=== PATIENT | male | born 1970 | race American Indian/Alaskan Native ===

== ENCOUNTER 2019-01-08 00:39 | Emergency (ER) | payer OTHER ==
[2019-01-08 01:14] LABS: Basophils # (Auto) 0.1 K/mm3 (0.0-0.1); Eosinophils # (Auto) 0.2 K/mm3 (0.0-0.4); Eosinophils % (Auto) 2.1 % (0.0-4.3); Hematocrit 42.4 % (35.5-45.6); Hemoglobin 14.2 gm/dl (11.8-15.2); Lymphocytes # (Auto) 2.7 K/mm3 (1.2-5.4); Lymphocytes % (Auto) 26.9 % (13.4-35.0); Mean Corpuscular HGB Conc 34 % (32-34); Mean Corpuscular Volume 89 fl (84-94); Monocytes # (Auto) 0.9 K/mm3 (0.0-0.8); Monocytes % (Auto) 8.7 % (0.0-7.3); Platelet Count 207 K/mm3 (140-440); Red Blood Count 4.79 M/mm3 (3.65-5.03); Red Cell Distribution Width 13.9 % (13.2-15.2)
[2019-01-08 01:35] LABS: Alanine Aminotransferase 19 units/L (7-56); Albumin 4.3 g/dL (3.9-5); BUN/Creatinine Ratio 16; Blood Urea Nitrogen 18 mg/dL (9-20); Calcium 9.7 mg/dL (8.4-10.2); Hemolysis Index 7
[2019-01-08 02:06] LABS: Bacteria,Urine 1+ /HPF (Negative); Bilirubin,Urine NEG (Negative); Blood,Urine NEG (Negative); Color,Urine Yellow (Yellow); Mucus,Urine FEW /HPF; Protein,Urine <15 mg/dL mg/dL (Negative)
[2019-01-08] MEDS ORDERED: PEPCID IV ONE (02:26)
[2019-01-08] MEDS ORDERED: ALUM-MAG HYDROX-SIMETH 200-200-20MG/5ML PO ONE (02:26)
[2019-01-08] MEDS ORDERED: TORADOL IV ONE (02:26)
[2019-01-08] MEDS ORDERED: LIDOCAINE VISCOUS 2% PO ONE (02:27)
[2019-01-08] MEDS ORDERED: ROCEPHIN/NS 1 GM/50 ML 1 GM/50 ML BAG IV ONE (02:27)
--- NOTE | 2019-01-08 03:33 | Emergency Department Report ---
ED Abdominal Pain HPI - General Chief Complaint: Abdominal Pain Stated Complaint: ABDOMINAL PAIN/VOMITING Time Seen by Provider: 01/08/19 02:18 Source: patient, family Mode of arrival: Ambulatory Limitations: No Limitations - History of Present Illness Initial Comments: Patient is a 48 yo AA male with a h/o asthma who presents to the ED with c/o acute onset persistent nausea and vomiting and diffuse abdominal pain for the last 3 hours. Patient also states that he has had only 2 episodes of nausea and vomiting. Patient states that he has not had any dyspnea, chest pain, dizziness, diarrhea, vision changes, dysuria, hematuria, fever and chills, testicular pain, sore throat and headache MD Complaint: abdominal pain, other (Nausea and vomiting) -: Sudden, hour(s) (3) Location: diffuse Radiation: none Migration to: no migration Severity: moderate Severity scale (0 -10): 6 Quality: cramping, aching Consistency: constant Improves With: nothing Worsens With: nothing Associated Symptoms: denies other symptoms, nausea, vomiting. denies: chills, constipation, hematemesis, hematochezia, melena, anorexia, syncope - Related Data Previous Rx's Medication Instructions Recorded Last Taken Type Dicyclomine [Bentyl] 20 mg PO Q6H PRN #24 tablet 01/08/19 Unknown Rx Ondansetron [Zofran Odt] 4 mg PO Q8HR #15 tab.rapdis 01/08/19 Unknown Rx Ranitidine HCl [Zantac] 150 mg PO Q12H #30 tablet 01/08/19 Unknown Rx Sennosides/Docusate [Senokot S] 1 each PO QHS #30 tab 01/08/19 Unknown Rx cephALEXin [Keflex] 500 mg PO Q6HR #40 capsule 01/08/19 Unknown Rx Allergies Allergy/AdvReac Type Severity Reaction Status Date / Time No Known Allergies Allergy Verified 06/17/16 07:29 ED Review of Systems ROS: Stated complaint: ABDOMINAL PAIN/VOMITING Other details as noted in HPI Constitutional: denies: chills, fever Eyes: denies: eye pain, eye discharge, vision change ENT: denies: ear pain, throat pain Respiratory: denies: cough, shortness of breath, wheezing Cardiovascular: denies: chest pain, palpitations Endocrine: no symptoms reported Gastrointestinal: abdominal pain, nausea, vomiting, constipation. denies: diarrhea Genitourinary: denies: urgency, dysuria Musculoskeletal: denies: back pain, joint swelling, arthralgia Skin: denies: rash, lesions Neurological: denies: headache, weakness, paresthesias Psychiatric: denies: anxiety, depression Hematological/Lymphatic: denies: easy bleeding, easy bruising ED Past Medical Hx - Past Medical History Previous Medical History?: Yes Hx Hypertension: No Hx CVA: No Hx Heart Attack/AMI: No Hx Congestive Heart Failure: No Hx Diabetes: No Hx Asthma: Yes Hx COPD: No Additional medical history: inguinal hernia. - Surgical History Past Surgical History?: No - Social History Smoking Status: Former Smoker Substance Use Type: None - Medications Home Medications: Home Medications Medication Instructions Recorded Confirmed Last Taken Type Dicyclomine [Bentyl] 20 mg PO Q6H PRN #24 tablet 01/08/19 Unknown Rx Ondansetron [Zofran Odt] 4 mg PO Q8HR #15 tab.rapdis 01/08/19 Unknown Rx Ranitidine HCl [Zantac] 150 mg PO Q12H #30 tablet 01/08/19 Unknown Rx Sennosides/Docusate [Senokot S] 1 each PO QHS #30 tab 01/08/19 Unknown Rx cephALEXin [Keflex] 500 mg PO Q6HR #40 capsule 01/08/19 Unknown Rx ED Physical Exam - General Limitations: No Limitations General appearance: alert, in no apparent distress - Head Head exam: Present: atraumatic, normocephalic, normal inspection - Eye Eye exam: Present: normal appearance, PERRL, EOMI. Absent: scleral icterus, conjunctival injection, nystagmus, periorbital swelling, periorbital tenderness Pupils: Present: normal accommodation - ENT ENT exam: Present: normal exam, normal orophraynx, mucous membranes moist, TM's normal bilaterally, normal external ear exam - Neck Neck exam: Present: normal inspection, full ROM - Respiratory Respiratory exam: Present: normal lung sounds bilaterally. Absent: respiratory distress, wheezes, rhonchi, chest wall tenderness, accessory muscle use, decreased breath sounds, prolonged expiratory - Cardiovascular Cardiovascular Exam: Present: regular rate, normal rhythm, normal heart sounds. Absent: systolic murmur, diastolic murmur, rubs, gallop - GI/Abdominal GI/Abdominal exam: Present: soft, normal bowel sounds. Absent: distended, tenderness, guarding, hyperactive bowel sounds, hypoactive bowel sounds, organomegaly, mass, bruit, pulsatile mass - Rectal Rectal exam: Present: deferred - Extremities Exam Extremities exam: Present: normal inspection, full ROM, normal capillary refill - Back Exam Back exam: Present: normal inspection, full ROM. Absent: tenderness, CVA tenderness (R), CVA tenderness (L), muscle spasm, paraspinal tenderness, vertebral tenderness - Neurological Exam Neurological exam: Present: alert, oriented X3, CN II-XII intact, normal gait, reflexes normal. Absent: motor sensory deficit - Psychiatric Psychiatric exam: Present: normal affect, normal mood, anxious - Skin Skin exam: Present: warm, dry, intact, normal color. Absent: rash ED Course Vital Signs 01/08/19 01/08/19 00:50 02:40 Temperature 97.6 F Pulse Rate 73 Respiratory 18 16 Rate Blood Pressure 95/56 O2 Sat by Pulse 97 Oximetry - Reevaluation(s) Reevaluation #1: 01/08/19 03:50 Patient is alert and oriented x 3 and is in no acute onset distress, resting comfortably in the room while talking to his family. Lab test results were reviewed and are unremarkable except for UA which showed acute urinary tract infection, and a mildly elevated AST. Patient was treated for pain and also received Rocephin 1 g IV 1 for acute urinary tract infection. On reevaluation, patient's pain is controlled, and patient has not had any nausea and vomiting in the ED this patient after being treated with antiemetics. Based on the physical exam findings and lab test results, patient was discharged home on pain medications, antibiotics for UTI and also antiemetics. Patient was advised to his medications, and to follow up with a primary care physician at [facility] in 5-7 days for reevaluation. Patient was advised to return to the ED immediately if symptoms get worse. 01/08/19 03:54 ED Medical Decision Making - Lab Data Result diagrams: 01/08/19 00:46 01/08/19 00:46 - Medical Decision Making Patient is alert and oriented x 3 and is in no acute onset distress, resting comfortably in the room while talking to his family. Lab test results were reviewed and are unremarkable except for UA which showed acute urinary tract infection, and a mildly elevated AST. Patient was treated for pain and also received Rocephin 1 g IV 1 for acute urinary tract infection. On reevaluation, patient's pain is controlled, and patient has not had any nausea and vomiting in the ED this patient after being treated with antiemetics. Based on the physical exam findings and lab test results, patient was discharged home on pain medications, antibiotics for UTI and also antiemetics. Patient was advised to his medications, and to follow up with a primary care physician at [facility] in 5-7 days for reevaluation. Patient was advised to return to the ED immediately if symptoms get worse. - Differential Diagnosis abdominal pain, gastroenteritis, GERD, Constipation, UTI Critical care attestation.: If time is entered above; I have spent that time in minutes in the direct care of this critically ill patient, excluding procedure time. ED Disposition Clinical Impression: Abdominal pain in male, Nausea and vomiting in adult, Acute urinary tract infection Disposition: TO HOME OR SELFCARE Is pt being admited?: No Does the pt Need Aspirin: No Condition: Stable Instructions: Acute Abdominal Pain (ED), Acute Nausea and Vomiting (ED), Urinary Tract Infection in Women (ED) Additional Instructions: Take medications with food, drink plenty of fluids and follow up with your Primary Care Physician as advised. Return to the ED immediately if symptoms get worse. Prescriptions: Sennosides/Docusate [Senokot S] 1 each PO QHS #30 tab Dicyclomine [Bentyl] 20 mg PO Q6H PRN #24 tablet PRN Reason: Pain , Severe (7-10) cephALEXin [Keflex] 500 mg PO Q6HR #40 capsule Ranitidine HCl [Zantac] 150 mg PO Q12H #30 tablet Ondansetron [Zofran Odt] 4 mg PO Q8HR #15 tab.rapdis Referrals: [facility] [Outside] - 3-5 Days Time of Disposition: 03:32 Print Language: CHINESE
[2019-01-08 04:26] VITALS: BP 95/57
== END 2019-01-08 04:25 | disposition home or self-care (01) ==
LOC: ED 00:39
DX: N39.0 Urinary tract infection, site not specified (principal); R11.2 Nausea with vomiting, unspecified
CPT/HCPCS: 36415; 80053; 81001; 83690; 85025; 87086; 96365; 96375; 99283; J0696; J1885

== ENCOUNTER 2019-05-27 10:22 | Emergency (ER) | payer SELFPAY ==
[2019-05-27 11:15] LABS: Basophils # (Auto) 0.1 K/mm3 (0.0-0.1); Basophils % (Auto) 0.9 % (0.0-1.8); Eosinophils # (Auto) 0.1 K/mm3 (0.0-0.4); Hematocrit 41.6 % (35.5-45.6); Hemoglobin 13.6 gm/dl (11.8-15.2); Lymphocytes # (Auto) 1.5 K/mm3 (1.2-5.4); Lymphocytes % (Auto) 22.1 % (13.4-35.0); Mean Corpuscular HGB Conc 33 % (32-34); Mean Corpuscular Volume 90 fl (84-94); Monocytes # (Auto) 0.5 K/mm3 (0.0-0.8); Monocytes % (Auto) 7.7 % (0.0-7.3); Platelet Count 203 K/mm3 (140-440); Red Blood Count 4.65 M/mm3 (3.65-5.03); Red Cell Distribution Width 14.4 % (13.2-15.2)
[2019-05-27 11:35] LABS: Alanine Aminotransferase 12 units/L (7-56); BUN/Creatinine Ratio 11; Blood Urea Nitrogen 10 mg/dL (9-20); Calcium 9.4 mg/dL (8.4-10.2); Hemolysis Index 7
--- NOTE | 2019-05-27 12:06 | Cat Scan Report ---
CT head/brain wo con INDICATION / CLINICAL INFORMATION: 48 years Male; BLURRED VISION HEADACHE. TECHNIQUE: Routine CT head without contrast. All CT scans at this location are performed using CT dos e reduction for ALARA by means of automated exposure control. Motion artifact COMPARISON: None. FINDINGS: BRAIN / INTRACRANIAL CONTENTS: No acute hemorrhage, mass effect, midline shift, hydrocephalus, or acu te, large territorial infarct. No chronic infarct or atrophy appreciated. No significant white matter abnormality. CRANIOCERVICAL JUNCTION: No significant abnormality. ORBITS: No significant abnormality of visualized orbits. SINUSES / MASTOIDS: No significant abnormality the visualized paranasal sinuses or mastoid air cells. ADDITIONAL FINDINGS: Prominent soft tissues suggestive the roof the nasopharynx, presumably related t o reactive adenoidal tissue. IMPRESSION: 1. No focal mass, hemorrhage, hydrocephalus, or acute, large territorial infarct. Signer Name: Saad Sigala MD, III Signed: 05/27/2019 12:01 PM Workstation Name: [id number]
[2019-05-27] MEDS ORDERED: methylPREDNISolone Sod Succinate 125 MG/2 ML INJ IV ONE (12:25)
[2019-05-27] MEDS ORDERED: SODIUM CHLORIDE 0.9% 1000 ML 1,000 ML IV ONE (12:25)
[2019-05-27] MEDS ORDERED: diphenhydrAMINE 50 MG/ML VIAL IV ONE (12:25)
--- NOTE | 2019-05-27 12:29 | Emergency Department Report ---
ED General Adult HPI - General Chief complaint: Neuro Symptoms/Deficit Stated complaint: LEFT SIDE PAIN/HEADACHE/NECK PAIN Time Seen by Provider: 05/27/19 12:24 Source: patient Mode of arrival: Wheelchair Limitations: No Limitations - History of Present Illness Initial comments: Patient is a 48-year-old male that presents emergency room with complaints of headache and neck pain. Patient states going on for 2 weeks. Patient states the pain is intermittent. Patient states the pain is a 7 out of 10. Patient states the pain is better with Tylenol and Goody powders and rest. Patient states the pain is worse with light and sound. Patient states he feels better when he is in a dark room. Patient states at times his vision is blurry but today it is not. Patient denies fever and chills. Patient denies nausea vomiting. Patient denies neck stiffness. Patient states he has full range of motion with his neck. Patient complains of light sensitivity and sound sensitivity. Patient denies nausea vomiting. Patient denies abdominal pain. -: Sudden Location: head Severity scale (0 -10): 7 Quality: stabbing, aching, sharp Consistency: intermittent Improves with: rest Worsens with: other Associated Symptoms: headaches. denies: chest pain, cough, diaphoresis, fever/chills, loss of appetite, malaise, nausea/vomiting, rash, seizure, shortness of breath, syncope, weakness Treatments Prior to Arrival: none - Related Data Previous Rx's Medication Instructions Recorded Last Taken Type Dicyclomine [Bentyl] 20 mg PO Q6H PRN #24 tablet 01/08/19 Unknown Rx Ondansetron [Zofran Odt] 4 mg PO Q8HR #15 tab.rapdis 01/08/19 Unknown Rx Sennosides/Docusate [Senokot S] 1 each PO QHS #30 tab 01/08/19 Unknown Rx cephALEXin [Keflex] 500 mg PO Q6HR #40 capsule 01/08/19 Unknown Rx raNITIdine HCl [Zantac] 150 mg PO Q12H #30 tablet 01/08/19 Unknown Rx methylPREDNISolone [Medrol 4MG 4 mg PO DAILY 6 Days #1 tab.ds.pk 05/27/19 Unknown Rx DOSEPAK (21 tabs)] Allergies Allergy/AdvReac Type Severity Reaction Status Date / Time No Known Allergies Allergy Verified 06/17/16 07:29 ED Review of Systems ROS: Stated complaint: LEFT SIDE PAIN/HEADACHE/NECK PAIN Other details as noted in HPI Constitutional: denies: chills, fever Eyes: denies: eye pain, eye discharge, vision change ENT: denies: ear pain, throat pain Respiratory: denies: cough, shortness of breath, wheezing Cardiovascular: denies: chest pain, palpitations Endocrine: no symptoms reported Gastrointestinal: denies: abdominal pain, nausea, diarrhea Genitourinary: denies: urgency, dysuria Musculoskeletal: denies: back pain, joint swelling, arthralgia Skin: denies: rash, lesions Neurological: headache. denies: weakness, paresthesias Psychiatric: denies: anxiety, depression Hematological/Lymphatic: denies: easy bleeding, easy bruising ED Past Medical Hx - Past Medical History Previous Medical History?: Yes Hx Hypertension: No Hx CVA: No Hx Heart Attack/AMI: No Hx Congestive Heart Failure: No Hx Diabetes: No Hx Asthma: Yes Hx COPD: No Additional medical history: inguinal hernia. - Surgical History Past Surgical History?: No - Family History Family history: no significant - Social History Smoking Status: Current Every Day Smoker Substance Use Type: None - Medications Home Medications: Home Medications Medication Instructions Recorded Confirmed Last Taken Type Dicyclomine [Bentyl] 20 mg PO Q6H PRN #24 tablet 01/08/19 Unknown Rx Ondansetron [Zofran Odt] 4 mg PO Q8HR #15 tab.rapdis 01/08/19 Unknown Rx Sennosides/Docusate [Senokot S] 1 each PO QHS #30 tab 01/08/19 Unknown Rx cephALEXin [Keflex] 500 mg PO Q6HR #40 capsule 01/08/19 Unknown Rx raNITIdine HCl [Zantac] 150 mg PO Q12H #30 tablet 01/08/19 Unknown Rx methylPREDNISolone [Medrol 4MG 4 mg PO DAILY 6 Days #1 tab.ds.pk 05/27/19 Unknown Rx DOSEPAK (21 tabs)] ED Physical Exam - General Limitations: No Limitations General appearance: alert, in no apparent distress - Head Head exam: Present: atraumatic, normocephalic - Eye Eye exam: Present: normal appearance, PERRL Pupils: Present: normal accommodation - ENT ENT exam: Present: mucous membranes moist - Neck Neck exam: Present: normal inspection, full ROM. Absent: tenderness, meningismus, lymphadenopathy, thyromegaly - Respiratory Respiratory exam: Present: normal lung sounds bilaterally. Absent: respiratory distress, wheezes, rales - Cardiovascular Cardiovascular Exam: Present: regular rate, normal rhythm. Absent: systolic murmur, diastolic murmur, rubs, gallop - GI/Abdominal GI/Abdominal exam: Present: soft, normal bowel sounds. Absent: distended, tenderness, guarding - Rectal Rectal exam: Present: deferred - Extremities Exam Extremities exam: Present: normal inspection - Back Exam Back exam: Present: normal inspection - Neurological Exam Neurological exam: Present: alert, oriented X3 - Psychiatric Psychiatric exam: Present: normal affect, normal mood - Skin Skin exam: Present: warm, dry, intact, normal color. Absent: rash ED Course Vital Signs 05/27/19 05/27/19 05/27/19 10:34 12:16 12:20 Temperature 97.6 F Pulse Rate 50 L Respiratory 16 15 Rate Blood Pressure 124/79 Blood Pressure [Left] O2 Sat by Pulse 98 99 97 Oximetry 05/27/19 05/27/19 05/27/19 12:21 12:30 12:46 Temperature 98.3 F Pulse Rate 57 L 53 L 53 L Respiratory 15 12 12 Rate Blood Pressure 122/78 122/78 Blood Pressure 122/78 [Left] O2 Sat by Pulse 97 98 97 Oximetry 05/27/19 05/27/19 05/27/19 13:00 13:16 13:30 Temperature Pulse Rate 49 L 52 L 53 L Respiratory 14 14 14 Rate Blood Pressure 114/74 114/74 114/74 Blood Pressure [Left] O2 Sat by Pulse 98 98 97 Oximetry 05/27/19 13:46 Temperature Pulse Rate 57 L Respiratory 13 Rate Blood Pressure 114/74 Blood Pressure [Left] O2 Sat by Pulse 97 Oximetry - Reevaluation(s) Reevaluation #1: Patient's headache is now a 2 out of 10. Patient states she feels much better. Patient is resting without problems. Patient denies neck pain. Patient denies neck stiffness. Patient states his neck pain is completely resolved. I discussed all results with patient. Discussed plan of care outpatient. Patient agrees plan of care. Patient be discharged home. Patient stable for discharge. Patient given discharge instructions. Patient voiced understanding of discharge instructions. 05/27/19 13:30 ED Medical Decision Making - Lab Data Result diagrams: 05/27/19 10:49 05/27/19 10:49 - Radiology Data Radiology results: report reviewed No acute findings on a CT scan of the head. - Medical Decision Making Patient is a 48-year-old male that just emergency room with severe headache. Patient is clinically consistent with a a migraine. Patient didn't have fever. Patient's neck exam negative. Patient given multiple medications and his pain is currently resolved. Patient's lab work unremarkable. Patient was given a steroid pack to prevent return of headache. Patient given Toradol just before discharge. Patient responded well to therapy. Patient is stable for discharge. Patient discharged home. Patient will need to see a neurologist for further evaluation treatment As an outpatient. - Differential Diagnosis migraine. Headache. Critical care attestation.: If time is entered above; I have spent that time in minutes in the direct care of this critically ill patient, excluding procedure time. ED Disposition Clinical Impression: Neck pain Migraine Qualifiers: Migraine type: unspecified Status migrainosus presence: with status migrainosus Intractability: not intractable Qualified Code(s): G43.901 - Migraine, unspecified, not intractable, with status migrainosus Headache Qualifiers: Headache type: unspecified Headache chronicity pattern: acute headache Intractability: not intractable Qualified Code(s): R51 - Headache Disposition: - TO HOME OR SELFCARE Is pt being admited?: No Does the pt Need Aspirin: No Condition: Stable Instructions: Migraine Headache (ED), Acute Headache (ED) Additional Instructions: Patient to follow-up with primary care in 2-3 days. Patient to follow-up with neurologist in 2 days. Patient to take Tylenol or ibuprofen when necessary for pain. Patient to return to ER condition worsens. Patient to rest. Patient increase water. Patient to avoid working until cleared by primary care and neurologist. Prescriptions: methylPREDNISolone [Medrol 4MG DOSEPAK (21 tabs)] 4 mg PO DAILY 6 Days #1 tab.ds.pk Referrals: PRIMARY MD MARIANA [Primary Care Provider] - 2-3 Days DENISE VARGAS MD [Staff Physician] - 2-3 Days Time of Disposition: 13:36
[2019-05-27] MEDS ORDERED: KETOROLAC 30 MG/1 ML INJ IV ONE (13:29)
[2019-05-27] MEDS ORDERED: KETOROLAC 30 MG/1 ML INJ ONE (13:31)
[2019-05-27 13:52] VITALS: BP 114/74
== END 2019-05-27 14:02 | disposition home or self-care (01) ==
LOC: ED 10:22
DX: G43.901 Migraine, unspecified, not intractable, with status migrainosus (principal); M54.2 Cervicalgia; J45.909 Unspecified asthma, uncomplicated; F17.200 Nicotine dependence, unspecified, uncomplicated; Z79.899 Other long term (current) drug therapy
CPT/HCPCS: 36415; 70450; 80053; 82140; 85025; 96374; 96375; 99284; J1200; J1885; J2930; J7030